=== PATIENT | female | born 1990 ===

== ENCOUNTER 2016-11-15 13:50 | Emergency (ER) | payer OTHER ==
[~2016-11-15] VITALS: Ht 162.6 cm; Wt 70.3 kg
[2016-11-15 13:56] VITALS: BP 136/84
--- NOTE | 2016-11-15 15:05 | RADIOLOGY REPORT ---
EXAMINATION: XR HUMERUS, RIGHT CLINICAL INFORMATION: Fall. Pain. COMPARISON: None TECHNIQUE: AP and lateral views of the right humerus. FINDINGS: The bones and soft tissues are normal. No fracture. Imaged portions of the shoulder and elbow are unremarkable. IMPRESSION: Normal right humerus.
--- NOTE | 2016-11-15 15:52 | ED UPPER/LOWER EXTREMITY COMPL ---
History of Present Illness General Chief Complaint: Upper Extremity Injury Stated Complaint: R ARM INJURY AFTER FALL Source: patient Exam Limitations: no limitations Vital Signs & Intake/Output Vital Signs & Intake/Output Vital Signs Date Time Temp Pulse Resp B/P Pulse O2 O2 Flow FiO2 Ox Delivery Rate 11/15 1605 89 15 11/15 1604 Room Air Room Air 11/15 1356 98.6 91 18 136/84 99 Room Air Allergies Coded Allergies: No Known Allergies (11/15/16) Reconcile Medications Ibuprofen 600 MG TABLET 1 TAB PO TID PRN pain with food Triage Note: 26 TO [facility]) S/P TRIP AND FALL THIS AM. STATES SHE DID NOT SUSTAIN ANY OTHER INJURIES. TOOK ADVIL 30 MIN AGO WITH GOOD RELIEF. HOLDING ICE TO ARM. XRAY ORDERED. Triage Nurses Notes Reviewed? yes : No Patient currently breastfeeds: No HPI: 26-year-old female status post mechanical fall after tripping, falling on her right side onto her right arm, arm was flexed the elbow when she fell onto it. She has pain at the mid to proximal humeral region lateral aspect. Worse with motion worse with palpation. No other injuries, no other complaints, tried ice and ibuprofen with some relief Past History Travel History Traveled to [place] past 21 day No Medical History Any Pertinent Medical History? 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 No Review of Systems Review of Systems Constitutional: Reports: see HPI. EENTM: Reports: no symptoms. Respiratory: Reports: no symptoms. Cardiovascular: Reports: no symptoms. Gastrointestinal/Abdominal: Reports: no symptoms. Genitourinary: Reports: no symptoms. Musculoskeletal: Reports: see HPI. Skin: Reports: no symptoms. Neurological/Psychological: Reports: no symptoms. Hematologic/Endocrine: Reports: no symptoms. Immunological: Reports: no symptoms. All Other Systems: Reviewed and Negative Physical Exam Physical Exam General Appearance: well developed/nourished Comments: Well-developed well-nourished no apparent distress. HEENT: Atraumatic, extraocular motion intact Neck: Supple, no lymphadenopathy Back: Nontender Respiratory: No respiratory distress Extremities: No edema, full range of motion Neuro: Alert and oriented x3 Psych: Mood affect normal, normal memory normal judgment. Skin: Warm and dry, no rash on exposed skin Right upper extremity, tenderness to the proximal humeral region, no, clavicular joint tenderness no distal clavicle tenderness no swelling or ecchymosis, range of motion is full, there is pain with abduction and there is pain with empty can test. There is no weakness. Elbow exam is benign. No deformity. Neurovascularly intact Progress Differential Diagnosis: compartment syndrome, contusion, dislocation, fracture, sprain, tendon injury Plan of Care: Orders Procedure Date/time Status Durable Medical Equipment 11/15 1558 Active Diagnostic Imaging: Viewed by Me: Radiology Read. Discussed w/RAD: Radiology Read. Radiology Impression: PATIENT: ALLA BISHOP PRESENT AGE: 26 PATIENT ACCOUNT NO: [id number] : 92 LOCATION: [facility] ORDERING PHYSICIAN: MAYE FORBES MD SERVICE DATE: 11/15/16 EXAM TYPE: RAD - XRY-HUMERUS, RIGHT EXAMINATION: XR HUMERUS, RIGHT CLINICAL INFORMATION: Fall. Pain. COMPARISON: None TECHNIQUE: AP and lateral views of the right humerus. FINDINGS: The bones and soft tissues are normal. No fracture. Imaged portions of the shoulder and elbow are unremarkable. IMPRESSION: Normal right humerus. DICTATED BY: CARA DE SOUAZ MD DATE/TIME DICTATED:11/15/161499 REHAB OFFICE COORDINATOR:ALLEY DATE/TIME TRANSCRIBED:11/15/161499 Comments: Sling applied by myself to the right upper extremity Recommend rest, ice, sling, anti-inflammatory medication and follow-up with orthopedist in with 2 weeks if no better. Departure Departure Disposition: HOME OR SELF CARE Condition: Stable Clinical Impression Primary Impression: Right shoulder strain Qualifiers: Encounter type: initial encounter Qualified Code: S46.911A - Strain of unspecified muscle, fascia and tendon at shoulder and upper arm level, right arm, initial encounter Referrals: MADDIE FULTON,VENKAT CHRISTINE MD,SAMARA Garrison (PCP/Family) Additional Instructions: Rest, ice, use sling for comfort Motrin and Tylenol as needed for pain. Gradual return to activity as tolerated. Follow-up with orthopedist in one to 2 weeks if no better. Departure Forms: Customer Survey General Discharge Information Prescriptions: Current Visit Scripts Ibuprofen 1 TAB PO TID PRN pain #30 TAB with food
[2016-11-15] MEDS ORDERED: IBUPROFEN600 M1 PO (16:01)
== END 2016-11-15 16:05 ==
LOC: ERH 13:50
DX: S46.911A Strain of unspecified muscle, fascia and tendon at shoulder and upper arm level, right arm, initial encounter (principal); W18.09XA Striking against other object with subsequent fall, initial encounter
CPT/HCPCS: 73060-RT

== ENCOUNTER 2018-04-20 04:17 | Emergency (ER) | payer OTHER ==
[~2018-04-20] VITALS: Ht 162.6 cm; Wt 72.6 kg
[~2018-04-20 04:17] MED LIST: CIPRO500 M1 PO; IBUPROFEN600 M1 PO; PYRIDIUM100 M1 PO
[2018-04-20 04:30] VITALS: BP 117/75
--- NOTE | 2018-04-20 04:47 | ED GI/GU/ABDOMINAL COMPLAINT ---
History of Present Illness General Chief Complaint: General Adult Stated Complaint: "THINK I HAVE A UTI" PER PT Source: patient, family, old records Exam Limitations: no limitations Vital Signs & Intake/Output Vital Signs & Intake/Output Vital Signs Date Time Temp Pulse Resp B/P B/P Pulse O2 O2 Flow FiO2 Mean Ox Delivery Rate 04/20 0430 97.7 69 18 117/75 98 Room Air Allergies Coded Allergies: No Known Allergies (11/15/16) Reconcile Medications Ciprofloxacin HCl (Cipro) 250 MG TABLET 1 TAB PO BID UTI Ciprofloxacin HCl (Cipro) 500 MG TABLET 1 TAB PO BID UTI Ibuprofen 600 MG TABLET 1 TAB PO TID PRN pain with food Phenazopyridine HCl (Pyridium) 200 MG TABLET 1 TAB PO TID DYSUIRA Phenazopyridine HCl (Pyridium) 100 MG TABLET 1 TAB PO TID PRN DYSURIA THIS MEDICATION MAY CHANGE THE COLOR OR YOUR URINE ORANGE. Triage Note: PT TO ED C/O UTI S/S SINCE LAST EVENING. PMH OF SAME. DENIES FLANK PAIN Triage Nurses Notes Reviewed? yes ? N Is pt currently ? No HPI: Patient presents with dysuria and urinary frequency since this evening. No fevers or chills. No abdominal pain. No nausea or vomiting. Similar symptoms on April 06 when she was seen here and diagnosed with UTI. Patient states that she only took 3 days with antibiotics and felt better so she stopped them. Her urine culture at that time did not grow anything. Past History Travel History Traveled to [place] past 21 day No Medical History Any Pertinent Medical History? 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 No Review of Systems Review of Systems Constitutional: Reports: no symptoms. Respiratory: Reports: no symptoms. Cardiovascular: Reports: no symptoms. GI: Reports: no symptoms. Genitourinary: Reports: see HPI, dysuria, frequency. Musculoskeletal: Reports: no symptoms. Neurological/Psychological: Reports: no symptoms. Immunologic/Allergic: Reports: no symptoms. Physical Exam Physical Exam General Appearance: well developed/nourished, alert, awake, anxious Head: atraumatic Eyes: Bilateral: PERRL, EOMI. Ears, Nose, Throat, Mouth: hearing grossly normal, moist mucous membrane Respiratory: normal breath sounds, chest non-tender, no respiratory distress, lungs clear Cardiovascular: regular rate/rhythm, normal peripheral pulses Gastrointestinal: normal bowel sounds, soft, non-tender, no organomegaly Back: normal inspection, normal range of motion, nO cva TENDERNESS Extremities: normal range of motion Neurologic/Psych: no motor/sensory deficits, awake, alert, oriented x 3, normal gait, normal mood/affect Skin: intact, normal color, warm/dry Core Measures ACS in differential dx? No Sepsis Present: No Sepsis Focused Exam Completed? No Progress Differential Diagnosis: UTI/pyelo Plan of Care: Orders Procedure Date/time Status CULTURE,URINE 04/20 540 Active Add-on Test (ER Only) 04/20 516 Active URINE 04/20 420 Complete URINALYSIS 04/20 420 Complete Initial ED EKG: none Departure Departure Disposition: HOME OR SELF CARE Condition: Stable Clinical Impression Primary Impression: UTI (urinary tract infection) Referrals: Jocelynn Lopez MD (PCP/Family) Additional Instructions: TAKE ANTIBIOTIC FOR FULL COURSE TAKE PYRIDIUM PRESCRIBED. IT WILL TURN ALL OFYOUR BODY FLUIDS ORANGE SO DO NOT WEAR CONTACTS RETURN IF SYMPTOMS WORSEN OR FOR ANY CONCERNS Departure Forms: Customer Survey General Discharge Information Prescriptions: Current Visit Scripts Ciprofloxacin HCl (Cipro) 1 TAB PO BID #14 TAB Phenazopyridine HCl (Pyridium) 1 TAB PO TID #9 TAB
[2018-04-20] MEDS ORDERED: CIPRO250 M1 PO (05:26)
[2018-04-20] MEDS ORDERED: PYRIDIUM200 M1 PO (05:26)
== END 2018-04-20 05:28 ==
LOC: ERH 04:17
DX: N39.0 Urinary tract infection, site not specified (principal)
CPT/HCPCS: 81001; 81025; 87086